=== PATIENT | male | born 1965 | race Caucasian/White ===

== ENCOUNTER 2016-08-07 15:26 | Emergency (ER) | payer OTHER | END 2016-08-07 18:30 | disposition home or self-care (01) | DX: S92.011A Displaced fracture of body of right calcaneus, initial encounter for closed fracture (principal); W13.8XXA Fall from, out of or through other building or structure, initial encounter; Y99.0 Civilian activity done for income or pay ==

== ENCOUNTER 2016-08-23 10:04 | Observation (INO) | payer OTHER ==
[2016-08-23] MEDS ORDERED: LACTATED RINGERS 1,000 ML IV ONE (10:20)
[2016-08-23] MEDS ORDERED: ceFAZolin 2 GM/50 ML 50 ML IV ONE (10:27)
[2016-08-23] MEDS ORDERED: fentaNYL 100 MCG/2 ML VIAL IVP ONE (10:35)
[2016-08-23] MEDS ORDERED: MIDAZOLAM 2 MG/2 ML VIAL IVP ONE (10:35)
[2016-08-23] MEDS ORDERED: LIDOCAINE-MPF 2% 5 ML VIAL IM ONE (10:35)
[2016-08-23] MEDS ORDERED: ONDANSETRON 4 MG/2 ML VIAL IVP ONE (10:35)
[2016-08-23] MEDS ORDERED: PROPOFOL 200 MG/20 ML VIAL IVP ONE (10:35)
[2016-08-23] MEDS ORDERED: BUPIVACAINE 0.5% PF 30 ML VIAL INFIL ONE ×2 (11:35→13:26)
[2016-08-23] MEDS: HYDROmorphone 1 MG/ML SYRINGE ONE ×7 (13:45→14:32)
[2016-08-23] MEDS ORDERED: ONDANSETRON 4 MG/2 ML VIAL ONE (14:02)
[2016-08-23] MEDS: fentaNYL 100 MCG/2 ML VIAL ONE ×2 (14:07→14:13)
[2016-08-23] MEDS ORDERED: HYDROmorphone 1 MG/ML SYRINGE ONE ×3 (14:17→17:31)
[2016-08-23] MEDS ORDERED: fentaNYL 100 MCG/2 ML VIAL ONE (14:57)
[2016-08-23] MEDS: HYDROcod/ACETAM 5/325 MG TABLET PO PRN ×2 (17:10→22:31)
[2016-08-23] MEDS: traMADol 50 MG TABLET PO PRN ×2 (17:25→22:31)
[2016-08-23] MEDS ORDERED: SODIUM CHLORIDE FLUSH 0.9% 10 ML SYRINGE IVP PRN (17:40)
[2016-08-23] MEDS ORDERED: ACETAMINOPHEN 500 MG TABLET PO PRN (17:41)
[2016-08-23] MEDS ORDERED: HYDROmorphone 1 MG/ML SYRINGE IVP PRN (17:44)
[2016-08-23] MEDS ORDERED: HYDROmorphone 1 MG/ML SYRINGE IVP ONE (18:00)
[2016-08-23] MEDS: D5.45NS W/20 MEQ KCL 1,000 ML IV SCH (18:21)
[2016-08-23] MEDS: ceFAZolin 1 GM in SODIUM CHLORIDE 0.9% MINIBAG 100 ML IV SCH (18:21)
[2016-08-23] MEDS: DOCUSATE SODIUM 250 MG CAPSULE PO SCH (18:45)
[2016-08-23] MEDS: ACETAMINOPHEN 1,000 MG/100 ML 100 ML IV PRN (19:22)
[2016-08-23] MEDS: HYDROmorphone PCA 10 MG IV PRN (19:36)
[2016-08-23] MEDS: SODIUM CHLORIDE FLUSH 0.9% 10 ML SYRINGE IVP SCH (23:38)
[2016-08-24] MEDS: ceFAZolin 1 GM in SODIUM CHLORIDE 0.9% MINIBAG 100 ML IV SCH ×2 (00:06→06:18)
[2016-08-24] MEDS: HYDROmorphone PCA 10 MG IV PRN ×2 (03:22→12:20)
[2016-08-24] MEDS: D5.45NS W/20 MEQ KCL 1,000 ML IV SCH ×2 (04:29→15:42)
[2016-08-24] MEDS: SODIUM CHLORIDE FLUSH 0.9% 10 ML SYRINGE IVP SCH ×3 (06:08→19:42)
[2016-08-24] MEDS: HYDROcod/ACETAM 5/325 MG TABLET PO PRN ×2 (07:52→14:16)
[2016-08-24] MEDS: traMADol 50 MG TABLET PO PRN ×4 (07:52→21:21)
[2016-08-24] MEDS: DOCUSATE SODIUM 250 MG CAPSULE PO SCH (08:31)
[2016-08-24] MEDS: ACETAMINOPHEN 1,000 MG/100 ML 100 ML IV PRN (13:39)
[2016-08-24] MEDS: HYDROcod/ACETAM 7.5 MG/325 MG TABLET PO PRN ×2 (18:25→22:33)
[2016-08-25] MEDS: D5.45NS W/20 MEQ KCL 1,000 ML IV SCH (17:23)
[2016-08-25] MEDS: DOCUSATE SODIUM 250 MG CAPSULE PO SCH (17:23)
[2016-08-25] MEDS: SODIUM CHLORIDE FLUSH 0.9% 10 ML SYRINGE IVP SCH (17:23)
== END 2016-08-25 12:55 | disposition home or self-care (01) ==
PROC: 0QSL04Z Reposition Right Tarsal with Internal Fixation Device, Open Approach (ICD-10-PCS; principal; 2016-08-23 11:00)
DX: S92.061A Displaced intraarticular fracture of right calcaneus, initial encounter for closed fracture (principal); S92.131A Displaced fracture of posterior process of right talus, initial encounter for closed fracture; W13.8XXA Fall from, out of or through other building or structure, initial encounter; Y99.0 Civilian activity done for income or pay; Z87.891 Personal history of nicotine dependence
CPT/HCPCS: 28415; 73650; 99218; A9270; C1713; J0131; J0690; J1170; J7120

== ENCOUNTER 2017-03-30 16:22 | Outpatient (CLI) | payer OTHER ==
--- NOTE | 2017-03-31 14:30 | MRI Report ---
EXAM: RIGHT ANKLE/HINDFOOT MRI WITHOUT CONTRAST EXAM DATE: 03/30/2017 05:41 PM. CLINICAL HISTORY: Displaced intraarticular fracture of right calcaneus. COMPARISON: None. TECHNIQUE: Multiplanar, multisequence T1-weighted and fluid-sensitive sequences of the ankle/hindfoot without contrast. Other: None. FINDINGS: Bones: Assessment of calcaneus and the bones of the hindfoot is limited because of the amount of meta llic artifact which is present. Visualized bones and midfoot show no fractures. On the fat-suppressed sequences, there are regions of increased signal in the inferior calcaneus but this may be artifactu al. Articular Cartilage: The subtalar joint difficult to assess. Ligaments: The anterior and posterior tibiofibular, anterior and posterior talofibular, and calcaneof ibular ligaments are intact. The deep and superficial deltoid and spring ligaments are intact. Anterior Tendons: The tibialis anterior, extensor hallucis longus, and extensor digitorum longus tend ons are unremarkable. Medial Tendons: The tibialis posterior, flexor digitorum longus, and flexor hallucis longus tendons a re unremarkable. Lateral Tendons: The peroneus brevis and longus are unremarkable. Achilles Tendon: The Achilles tendon is unremarkable. Musculature: No edema or fatty atrophy. Other: No effusions. The contents of the sinus tarsi and tarsal tunnel are unremarkable. Plantar fascia difficult to assess because of artifact. The subcutaneous tissues are unremarkable. IMPRESSION: 1. Access left calcaneus bone marrow is limited because of the amount of metallic artifact which is p resent. Assessment of subtalar joint likewise is difficult. 2. There is a small amount of increased T2 signal in the anterior talus which may be artifactual. Unc ertain if this is related to edema. No evidence for fractures. 3. Collateral ligament complexes, and tendons of plantar flexion and anteflexion appear unremarkable. [facility]CUL[facility] SECTION Referring Provider Line: [phone] SITE ID: [id number]
== END 2017-03-30 16:23 | disposition home or self-care (01) ==
LOC: DI 16:22
PROVIDERS: ATTEND Orthopaedic Surgery
DX: M25.571 Pain in right ankle and joints of right foot (principal); M76.71 Peroneal tendinitis, right leg; S92.061D Displaced intraarticular fracture of right calcaneus, subsequent encounter for fracture with routine healing; W17.89XD Other fall from one level to another, subsequent encounter; Z48.89 Encounter for other specified surgical aftercare

== ENCOUNTER 2021-12-06 11:43 | Outpatient (CLI) | payer OTHER ==
--- NOTE | 2021-12-06 14:27 | XRAY Report ---
PROCEDURE: Lumbar Spine 2 View INDICATIONS: LOW BACK PX TECHNIQUE: 3 views of the lumbar spine were acquired. COMPARISON: None. FINDINGS: Bones: 5 [id number] vertebrae are present. There is normal bony alignment. No vertebral body compression fractures. No suspicious bony lesions. Multilevel degenerative disc space loss. Lower l umbar facet arthropathy. Suspect canal stenosis. Soft tissues: Overlying bowel gas pattern is normal. No suspicious soft tissue calcifications. IMPRESSION: Degenerative change. Suspect canal stenosis. Comment: Lumbar spine MRI may be helpful. Reviewed by: Enrique Nieto MD on 12/06/2021 2:25 PM PDT Approved by: Enrique Nieto MD on 12/06/2021 2:25 PM PDT Station ID: [id number]
--- NOTE | 2021-12-06 14:28 | XRAY Report ---
PROCEDURE: Hip w/Pelvis 1V RT INDICATIONS: R HIP PX TECHNIQUE: AP pelvis with lateral view(s) of the right hip(s). COMPARISON: None FINDINGS: Bones: Right femoral IM jorge. Mild right hip degenerative change. Mild nonbridging heterotopic bone fo rmation superior lateral to the right hip. No fractures or dislocations. Pelvic ring appears intact. No suspicious bony lesions. Soft tissues: The visualized bowel gas pattern is normal. No suspicious soft tissue calcifications. IMPRESSION: Mild right hip degenerative change. No evidence acute bony abnormality of the pelvis and right hip. Reviewed by: Enrique Nieto MD on 12/06/2021 2:27 PM PDT Approved by: Enrique Nieto MD on 12/06/2021 2:27 PM PDT Station ID: [id number]
== END 2021-12-06 11:44 | disposition home or self-care (01) ==
LOC: DI.N 11:43
PROVIDERS: ATTEND Internal Medicine
DX: M16.11 Unilateral primary osteoarthritis, right hip (principal); M47.816 Spondylosis without myelopathy or radiculopathy, lumbar region

== ENCOUNTER 2022-11-15 14:47 | Outpatient (CLI) | payer OTHER ==
[2022-11-15 15:23] VITALS: BP 132/80
--- NOTE | 2022-11-15 15:23 | SLEEP CARE CONSULTATION ---
Information from patient questionnaire entered by Cj Paredes. I have reviewed and concur with the information entered by Cj Paredes. This document represents the service I personally performed and the decisions made by me, Ranjana Robledo ARNP. History of Present Illness Service Date and Time: 11/15/2022 1447 Reason for Visit: New patient Chief Complaint: reports: Unrefreshed sleep, Snoring, Observed pauses in breathing, Frequent awakenings at night Date of Onset: 2YRS Usual bedtime: 11PM Time it takes to fall asleep: 1-2HRS Snores at night: Yes Observed to quit breathing while asleep: Yes Sleeps alone due to snoring: Yes Number of times waking at night: 3-4 Reasons for waking at night: reports: Snoring, Gasping for air. denies: Choking Toss, Turn, or Twitch while sleeping: Yes Recalls having dreams: Yes Usually gets out of bed at: 5AM Feels refreshed in the morning: No Morning headache: No Sleepy or fatigued during the day: Yes Ever fallen asleep while driving: No Takes day naps: No Dreams during day naps: No Prior sleep studies: No Additional HPI information: I had the pleasure of seeing KIM CARRILLO today regarding the possibility of him having a sleep disorder. His current complaints are unrefreshed sleep, observed pauses in breathing and frequent night awakenings. He states his tells him that he snores loudly at night. He has woke up "snorting". He states for the last few years he has woke up almost hourly through the night. He was prescribed Trazodone 50 mg night and is sleeping better through the night. 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 Patient is Single and [place]. Have you smoked in the past 12 months: No Quit date: 2011 Alcohol use: Yes Alcohol amount and frequency: 1 DRINK 3 DAYS A WEEK Caffeine use: Yes Caffeine amount and frequency: 2 CUPS MORNINGS ONLY Family History Family history of sleep disordered breathing: No (does not know) Allergies and Home Medications Known drug allergies: No Drug allergies reviewed: Yes Home medication list reviewed: Yes (Trazodone 50 mg prn sleep) Allergy and home medication list: Allergies No Known Drug Allergies Allergy (Verified 11/14/22 14:12) Review of Systems Weight loss over past 5 years: 12-15, in last year Cardiovascular: denies: high blood pressure Gastrointestinal: denies: heartburn Neurological: reports: headaches, gait or balance problems Psychiatric: denies: anxiety, depression Ear/Nose/Throat: reports: tonsillectomy Musculoskeletal: reports: joint pain, joint swelling, muscle pain or cramping, mobility problems Immunologic: reports: sneezing Physical Exam Vital signs obtained and entered by: CJ Chirinos MA Blood Pressure: 132/80 (LEFT ARM) Cuff size: regular Heart Rate: 95 O2 Saturation: 98 Height: 5 ft 8 in Weight: 189 lb Body Mass Index: 28.7 BMI Classification: Overweight Neck circumference: 17 Mouth and throat: narrow oropharynx Soft palate: long Hard palate: normal Uvula: normal Uvula visualization: 25% Mallampati Class III Tongue: normal in size Tonsils: absent bilaterally Neck: normal w/o lymphadenopathy or thyromegaly Heart: regular rate and rhythm Lungs: clear bilaterally Impression and Plan 1. Suspected Obstructive Sleep Apnea-Hypopnea Syndrome, as suggested by a history of loud and irregular snoring, observed cessation of breath while asleep, frequent awakening during the night and unrefreshed sleep. Narrow oropharynx and obesity are common predisposing factors for obstructive sleep apnea-hypopnea syndrome. I recommend proceeding to polysomnography to confirm the diagnosis and to assess severity. If the patient has significant sleep disordered breathing, a manual CPAP titration study will also be performed to find the optimal treatment pressure. I informed the patient of what the sleep studies involve and after some discussion, obtained agreement to proceed. The pathophysiology of obstructive sleep apnea-hypopnea syndrome was discussed with the patient and health risks of cardiovascular and cerebrovascular disease if not treated. Risks of drowsy driving discussed in detail and patient advised to avoid long distance driving and to taffy puller at the first sign of drowsiness. Patient agreed to plan. * Schedule polysomnography +- manual CPAP titration study and return in 1-2 weeks after the study to discuss result and initiate therapy. * Avoid long distance driving or driving when feeling sleepy. * Avoid alcohol, sedative and muscle relaxant around bedtime. * Attempt to lose weight. * Review instructions provided by trained office staff on how to prepare for the sleep study. * Return for follow-up after sleep study completed. Counseling Topics: Weight loss health impact Visit Type: In Office Time Spent with Patient (minutes): 30 Provider Statement: I spent 100% of the Face to Face Visit with the patient with greater than 50% spent counseling the patient and coordination of care.
== END 2022-11-15 14:48 | disposition home or self-care (01) ==
LOC: SC 14:47
PROVIDERS: ATTEND Nurse Practitioner Family
DX: R06.81 Apnea, not elsewhere classified (principal); G47.8 Other sleep disorders; R06.83 Snoring; E66.3 Overweight; Z68.28 Body mass index [BMI] 28.0-28.9, adult
CPT/HCPCS: 99203; 99212

== ENCOUNTER 2022-12-09 20:30 | Outpatient (CLI) | payer OTHER | END 2022-12-09 20:31 | disposition home or self-care (01) | LOC: SC 20:30 | PROVIDERS: ATTEND Nurse Practitioner Family | DX: G47.33 Obstructive sleep apnea (adult) (pediatric) (principal); G47.61 Periodic limb movement disorder | CPT/HCPCS: 95810 ==

== ENCOUNTER 2022-12-20 14:09 | Outpatient (CLI) | payer OTHER ==
--- NOTE | 2022-12-20 14:37 | Sleep Patient Instructions ---
Sleep Center Visit Summary - Patient Visit Information Reason for Visit: Sleep study followup - Patient Instructions Additional Instructions: You are to start Positional therapy to control your sleep apnea. You may obtain positional belts or other commercial devices online. You may also use pillows to position yourself on your side or a T shirt with balls sewn into the back to help keep you on your side to sleep. We would like to follow up with you in a month to check effectiveness of therapy. Please follow up in the sleep care office in 1 month. - Clinic Information Contact: [facility] [address] [place] [id number] [email or web address] T: [phone]
--- NOTE | 2022-12-20 14:43 | SLEEP CARE CONSULTATION ---
Information from patient questionnaire entered by Avelina Paredes. I have reviewed and concur with the information entered by Avelina Paredes. This document represents the service I personally performed and the decisions made by , Ranjana Robledo ARNP. History of Present Illness Service Date and Time: 12/20/2022 1409 Initial [place] Sleepiness Scale score: 8 (11/15/22) Current [place] Sleepiness Scale score: 7 (12/20/22) Additional HPI information: KIM CARRILLO returns for follow up and results of the recently performed polysomnography. I explained the pathophysiology behind obstructive sleep apnea. We then spent quite a bit of time discussing different treatment options. For mild obstructive sleep apnea, surgery and oral appliance are alternatives to nasal CPAP therapy but in moderate or severe cases, nasal CPAP is the most effective and reliable treatment. Because apnea is primarily in supine position, then positional management therapy could be effective. Methods discussed such as positioning with pillows, using a T-shirt with tennis balls in the back or commercial products that have a pillow format on back to prevent supine sleep. I reviewed the impact of weight changes on sleep apnea and strongly recommended losing weight. Patient counseled not drink alcohol less than 4 hours before bedtime as it can increase snoring and apnea. Patient was cautioned about risks of drowsy driving until sleepiness symptoms resolve. Patient denies drowsy driving. Sleep Study - Results Type of Sleep Study: Polysomnography (COMPLETED 12/09/22) Prior sleep studies: No Polysomnography/Home Sleep Study results: IMPRESSION: The quality of the study is good. The patient had minimally reduced sleep efficiency. The sleep architecture was abnormal for sleep fragmentation and reduced amount of time spent in slow wave sleep (N3). Respiratory monitoring showed mild obstructive sleep apnea-hypopnea (AHI = 10.5) associated with frequent arousals, oxyhemoglobin desaturation and mild hypoxia (ambika oxygen saturation of 83%). The respiratory events occurred most frequently during supine sleep (supine AHI = 35.3; non-supine = 5.16). Snore was light in intensity. There was severe periodic leg movement of sleep not contributing to the sleep fragmentation. Cardiac rhythm was normal sinus rhythm without significant arrhythmia. No abnormal behavior (parasomnia) observed during the night. Allergies and Home Medications Known drug allergies: No Drug allergies reviewed: Yes Home medication list reviewed: Yes (no changes) Allergy and home medication list: Allergies No Known Drug Allergies Allergy (Verified 12/19/22 14:33) Review of Systems Review of systems same as previous: Yes (no changes) Physical Exam Vital signs obtained and entered by: AVELINA Chirinos MA Blood Pressure: 110/70 (LEFT ARM) Cuff size: long Heart Rate: 98 O2 Saturation: 96 Height: 5 ft 8 in Weight: 187 lb 9.6 oz Body Mass Index: 28.5 BMI Classification: Overweight Impression and Plan 1. Obstructive Sleep Apnea-Hypopnea Syndrome, mild, with lowest oxygen saturation of 83%. Since patients apnea is primarily in supine position, patient advised to try positional therapy and agreed with plan. He has lost about 20 pounds in last few months. He is also advised to continue to try to lose weight as this will reduce snoring and apnea. A follow up will be scheduled in about a month to check effectiveness and sustainability of therapy. He will let us know of any issues he is having. 2. Hypoxemia, mild, with a ambika oxygen saturation of 83% and 7.8 minutes spent under 90%. His baseline oxygen saturation was normal with an average oxygen saturation of 91%. 3. Periodic limb movement, severe, that did not fragment patients sleep. Periodic limb movement of sleep (PLMS) is characterized by episodes of repetitive limb movements that occur during sleep and usually involve the lower limbs. The etiology is unknown. Caffeine can aggravate PLMS and should be avoi ded. Sleep hygiene methods can also improve sleep as well as lifestyle changes such as regular exercise. Patient was advised that no treatment is needed at this time. If symptoms increase, then further evaluation is indicated. * Positional therapy. * Continue to try to lose weight. * Avoid alcohol consumption near bedtime. * Avoid supine sleep. * The patient is again cautioned about driving until sleepiness completely resolves. * Return in one month. I will assess response to therapy at that time. Counseling Topics: Sleeping position, Weight loss health impact Visit Type: In Office Time Spent with Patient (minutes): 20 Provider Statement: I spent 100% of the Face to Face Visit with the patient with greater than 50% spent counseling the patient and coordination of care.
[2022-12-20 14:44] VITALS: BP 110/70
== END 2022-12-20 14:10 | disposition home or self-care (01) ==
LOC: SC 14:09
PROVIDERS: ATTEND Nurse Practitioner Family
DX: G47.33 Obstructive sleep apnea (adult) (pediatric) (principal); R09.02 Hypoxemia; G47.61 Periodic limb movement disorder; E66.3 Overweight; Z68.28 Body mass index [BMI] 28.0-28.9, adult
CPT/HCPCS: 99212; 99213